=== PATIENT | male | born 1945 | race Caucasian/White ===

== ENCOUNTER 2016-08-31 18:22 | Inpatient (IN) | payer MEDICARE, MEDICAID ==
[~2016-08-31] VITALS: Ht 180.3 cm; Wt 82.2 kg
[~2016-08-31 18:22] MED LIST: Augmentin PO; HYDR1TAB PO
[2016-08-31 18:29] VITALS: BP 167/81; PULSE 66; RESP 18; O2SAT 97
[2016-08-31 18:38] VITALS: BP 206/102; PULSE 92; RESP 20; O2SAT 96
--- NOTE | 2016-08-31 18:49 | ED.REPORT ---
HPI-Chest Pain 40 and Over Date of Service Aug 31, 2016 ED Provider: Andrew Puga MD Pt is a 71 year old male with a hx of HTN presenting to the ED via EMS complaining of 6/10 left chest pain and pressure radiating to his left arm onset at 1700 today. Associated symptoms include diaphoresis. Denies nausea or vomiting. He states that the pain was onset while sitting down watching TV. Takes 1 baby aspirin per day. He states that his blood pressure is normally high. The pt was given nitro and baby aspirin by medics with no relief. Nursing Notes Stated Complaint: CHEST PAIN Chief Complaint: Chest Pain Nursing Notes Reviewed: Yes ([employer], meds not reconciled) Allergies: Uncoded Allergies: ALLUPURINOL (Adverse Reaction, Intermediate, nausea, 08/31/16) Scheduled ([Augmentin]) 1 TAB PO BID Hydrocod/APAP-Expunged, Do Not Renew! (VICODIN 5/500-Expunged Drug, Do Not Renew ) 1 Udtab Tablet 1-2 TAB PO Q6 General Time Seen by MD: 18:46 Chief Complaint Chest pain Hx Obtained From: Patient, EMS Arrived By: Ambulance Sudden in Onset?: Yes Onset Occurred: 1 - 4 hours ago Symptom Duration: Since onset Location: : Chest left Quality: Painful, Pressure Radiation: : Arm left Severity: Current: Pain level 4 out of 10 Severity: Maximum: Pain level 7 out of 10 Recent Healthcare: No recent doctor visit, No recent hospitalization Similar Sx Previous: No Risk Factors )( CAD Risk Stratification Hypertension Risk factors reviewed Past Medical History Past Medical History Admit for bowel obstruction and severe hyponatremia July 2010 Acute renal failure (Cr > 10) secondary to SBO Jul 2010 Septicemia complicating SBO Jul 2010 HTN Past Surgical History Lysis of adhesions 07/2010 Reports: Appendectomy Smoking History Heavy Tobacco Smoker Ambulatory Status Independent Review of Systems Cardiovascular: Reports: Chest pain GI: Denies: Nausea, Vomiting Skin: Reports Diaphoresis Complete sys rev & neg: except as marked. Physical Exam Initial Vital Signs Vital Signs (First) Date Time Temp Pulse Resp B/P Pulse Ox O2 Delivery O2 Flow Rate FiO2 08/31/16 18:38 36.6 92 20 206/102 96 Room Air Initial VS: Reviewed, Unavailable (none on chart, ordered) Head / Eyes: Atraumatic, Normocephalic, PERRL ENT: Mucous membranes moist, Conjunctiva normal, No scleral icterus Neck: Supple, Non-tender, Full range of motion Skin: Warm, Dry, No cyanosis Neurologic: Alert, Oriented, Nonfocal Psychiatric: Mood/affect normal, Behavior normal, Normal thought content General/Constitutional: Awake, Alert, No acute distress, Well appearing Respiratory / Chest: Breath sounds NL, Breath sounds = bilat, No respiratory distress, No rales, No rhonchi, No wheezing, No stridor Cardiovascular: Heart rate NL, Regular rhythm, Heart sounds NL, No murmurs Abdomen: Soft, Non-tender, BS normoactive, No distention Interpretation & Diagnostics Lab Results Interpretation Result Diagram: 08/31/16 1850 08/31/16 1850 Test 08/31/16 18:50 White Blood Count 8.7th/mm3 (3.8-10.1) Red Blood Count 4.89mil/mm3 (4.40-5.80) Hemoglobin 15.1g/dL (13.8-17.2) Hematocrit 44.8% (41.0-50.0) Mean Corpuscular Volume 91.6fL (81-100) Mean Corpuscular Hemoglobin 30.9pg (27.0-35.0) Mean Corpuscular Hemoglobin Concent 33.7% (32.0-37.0) Red Cell Distribution Width 14.3% (12.3-15.4) Platelet Count 210bil/L (150-400) Neutrophils (%) (Auto) 56.5% (40-74) Lymphocytes (%) (Auto) 31.1% (14-46) Monocytes (%) (Auto) 9.7% (4-12) Eosinophils (%) (Auto) 2.2% (0-5) Basophils (%) (Auto) 0.3% (0-3) Sodium Level 142mEq/L (134-144) Potassium Level 4.1mEq/L (3.5-5.2) Chloride Level 105mEq/L (97-108) Carbon Dioxide Level 21mmol/L (18-29) Blood Urea Nitrogen 22mg/dL (8-27) Creatinine 0.81mg/dL (0.76-1.27) Estimat Glomerular Filtration Rate 100mL/min (>59) Glucose Level 113mg/dL (60-99) Calcium Level 9.2mg/dL (8.5-10.1) Magnesium Level 2.0mg/dL (1.6-2.6) Total Bilirubin 0.4mg/dL (0.0-1.2) Aspartate Amino Transf (AST/SGOT) 24U/L (0-50) Alanine Aminotransferase (ALT/SGPT) 21U/L (0-44) Alkaline Phosphatase 87U/L (25-160) Troponin T < 0.010ug/L (0.0-0.011) Total Protein 7.5g/dL (6.4-8.4) Albumin 4.2g/dL (3.4-5.0) Lab Results Interpretation: CBC normal CMP normal troponin #1 negative ECG Interpretation ECG Interpretation: Rate 76. Time: 19:00 Interpreted by: ED physician Normal ECG Interpretation: Normal sinus rhythm ECG Interpretation: Rate 67. No acute ischemic changes. In both cases EKG is improved compared to prior in July 2010 when there were anterior T wave abnormalities that are no longer present. Time: 19:24 Interpreted by: ED physician Normal ECG Interpretation: Normal sinus rhythm X-Ray Chest Interpretation Chest Xray Interpretation: IMPRESSION: No acute cardiopulmonary disease. Dictated by: Brandon Roque M.D. on 08/31/2016 at 19:05 View: Portable, 1 view Interpretation / Wet Read by: Interpret - Radiologist Re-Eval/Medical Decision Med Decision/Clinical Course This is a 71-year-old male heavy smoker without known previous heart disease he does have untreated hypertension (he has been told he had severe high blood pressure, he is measured at high, before is been given a medicine but has not been taking it for the past year or 2) who presents complaining of acute onset of left-sided chest discomfort rating down the left arm with some fatigue, nausea, diaphoresis. The patient really got his attention and he knew he needed to come to the hospital. He received aspirin and nitroglycerin en route , it is improved but still having active discomfort at 410 on arrival. The patient severely hypertensive initially with a systolic greater than 200. History of EKG reveals no clear acute ischemic changes, to my eye there was a cholesterol borderline, nonspecific, non-definitive ST abnormality anteriorly. However, it was not definitive,. Additionally, invertned T wave abnormality seen on previous EKG anteriorly have now resolved. Negative and his presentation, a sequential EKG was obtained and appeared normal (nonspecific initial changes appeared completely normal on a subsequent EKG) Initial blood work was normal. Patient received some Dilaudid, nitroglycerin, metoprolol and his blood pressure symptoms improved. Presents with enough features to merit admission for serial enzymes and continued monitoring category syndrome/unstable angina remains in the differential. I am not finding clinical features to suggest pulmonary embolus. The case is discussed with the hospitalist who has see him in the department. Source of Hx: Old records Time of Eval: 19:02 Patient Status: Condition improved Re-Evaluation/Progress Note: Discussed supplemental history. Time of Eval: 20:11 Patient Status: Condition improved Re-Evaluation/Progress Note: Pt pain is improved but not resolved. Discussed plan for admission. Pt understands and agrees. Consultation : Referral / Consult Name: Julia Wilburn MD Consulted With: Hospitalist Call Returned at: 20:12 Egg Tester: Will see patient, Agrees with plan, Accepts admit Differential Diagnosis: Positive: Chest pain, acute, Negative: Dysrhythmia, Esophageal rupture, Gun shot wound chest, Pneumonia, Pneumothorax, Pulmonary edema, Pulmonary embolism, Rib fracture, Stab wound chest Counseled Regarding: Diagnosis, Lab results, Need for follow-up, When/why to return to ED Discharge & Departure Primary Impression: Chest pain Chest pain type: unspecified Qualified Code: R07.9 - Chest pain, unspecified Additional Impressions: Hypertension Hypertension type: unspecified secondary hypertension Hypertension goal: unspecified goal Qualified Code: I15.9 - Secondary hypertension, unspecified Tobacco abuse Disposition: ADMITTED TO HOSPITAL Discharge Condition All VS Reviewed: Yes Condition: Improved Referrals: Reginaldo Coyle MD (Family) Leviibemili Attestation Portions of this note were transcribed by Loli Nolasco. I, Dr. Puga personally performed the history, physical exam and medical decision-making; I reviewed and confirmed the accuracy of the information in the transcribed note. Signed by: Purnima Aguilera, 08/31/2016 at 2054. copies to: Reginaldo Coyle MD, Matthew F MD Aug 31, 2016 18:49 LOLI NOLASCO Aug 31, 2016 18:57
[2016-08-31] MEDS ORDERED: MeTOProlol 1 mg/mL 5 mL Inj IVPUSH ONE ×2 (18:55→20:35)
[2016-08-31] MEDS ORDERED: HYDROmorphone 0.5 mg/0.5 mL iSecure Syringe IVPUSH PRN (18:55)
[2016-08-31] MEDS ORDERED: Nitroglycerin 2% 1 Gm Ointment TOPICAL SCH (18:55)
[2016-08-31 19:01] LABS: BASOPHILS % (AUTO) 0.3 % (0-3); EOSINOPHILS % (AUTO) 2.2 % (0-5); MONOCYTES % (AUTO) 9.7 % (4-12); Mean Corpuscular Hemoglobin 30.9 pg (27.0-35.0); Mean Corpuscular Volume 91.6 fL (81-100); NEUTROPHILS % (AUTO) 56.5 % (40-74); Platelet Count 210 bil/L (150-400)
--- NOTE | 2016-08-31 19:07 | DRSVH ---
PROCEDURE: X-RAY CHEST ONE VIEW, PORTABLE ([id number]) INDICATIONS: 71 year-old male with chest pain. TECHNIQUE: One view of the chest was acquired. COMPARISON: [facility], [place], CHEST 2VW, 07/27/2010, 11:56. [facility], CR, C HEST 1VW (PORTABLE), 07/19/2010, 15:06. FINDINGS: Surgical changes and devices: None. Lungs and pleura: No pleural effusions or pneumothorax. Lungs are clear, except for lateral lingula r scarring as before. Mediastinum: Mediastinal contours appear normal. Heart size is normal. Bones and chest wall: No suspicious bony lesions. Overlying soft tissues appear unremarkable. IMPRESSION: No acute cardiopulmonary disease. Dictated by: Brandon Roque M.D. on 08/31/2016 at 19:05 Approved by: Brandon Roque M.D. on 08/31/2016 at 19:05
[2016-08-31 19:41] LABS: TROPONIN T < 0.010 ug/L (0.0-0.011)
[2016-08-31] MEDS ORDERED: HYDROmorphone 0.5 mg/0.5 mL iSecure Syringe IVPUSH ONE ×2 (19:45→20:35)
[2016-08-31 20:05] VITALS: BP 187/86; PULSE 78; RESP 20; O2SAT 96
[2016-08-31] MEDS: Nitroglycerin 2% 1 Gm Ointment TOPICAL SCH ×2 (20:42→20:50)
[2016-08-31 21:10] VITALS: BP 205/102; PULSE 68; RESP 19; O2SAT 98
[2016-08-31] MEDS ORDERED: Alum-Mag Hydrox-Simeth 30 mL Suspension PO PRN (21:35)
[2016-08-31] MEDS ORDERED: Nitroglycerin 50 mg/250 mL D5W 50,000 MCG in IV Premix 1 EACH IV SCH (21:35)
[2016-08-31] MEDS ORDERED: Ondansetron 2 mg/mL 2 mL Inj IVPUSH PRN (21:35)
[2016-08-31] MEDS ORDERED: Polyethylene Glycol (PEG) 17 Gm Powder PO PRN (21:35)
[2016-08-31] MEDS ORDERED: Senna-Docusate 8.6-50 mg Tablet PO PRN (21:35)
[2016-08-31 22:11] VITALS: BP 210/122; PULSE 69; RESP 13; O2SAT 98
--- NOTE | 2016-08-31 23:18 | PCM.HPMED ---
Subjective Date of Service Aug 31, 2016 Primary Provider: Admitting Physician: Julia Wilburn MD Primary Care Physician: Nopshawn Attending Physician: Julia Wilburn MD Admit Status: From the Emergency Department, Full Admit, Critical Care Chief Complaint: Left-sided chest pain with significantly elevated blood pressure History of Present Illness: This is a 71-year-old male with a history of hypertension who does not follow up with medical care who presents with left-sided chest pain radiation to his left arm started about 5 PM the day of admission. He denied a nausea vomiting denied any shortness of breath but did admit to having diaphoresis with it. He was given nitroglycerin here with some improvement in his symptoms. He notes that went from about a 6 out of 10 to about a 2 out of 10. He was given aspirin via paramedics. Patient has no history of coronary artery disease. He periodically will check his blood pressure at home and notes that it runs anywhere from 150-200/90 200s typically. Again he has not seen medical provider times several years. His evaluation here in the emergency room includes a 12-lead EKG which does not reveal any acute abnormalities. He was given sublingual nitroglycerin along with Nitropaste which did help in the amount of discomfort he had. He was also given IV Dilaudid which improved his discomfort even more. However with those interventions he was continuing to have blood pressures over 200 and diastolic blood pressure about 110. First troponin is less than 0.01. He notes no prior history of similar. He notes pain does not change with movement or inspiration. There is no tenderness to palpation. He denies any GI symptoms. He denies cough fevers or chills. Review of Systems: All other review of systems are reviewed and are negative except for as in history of present illness. Allergies Uncoded Allergies: ALLUPURINOL (Adverse Reaction, Intermediate, nausea, 08/31/16) Home Medications None PMH Past Medical History Admit for bowel obstruction and severe hyponatremia July 2010 Acute renal failure (Cr > 10) secondary to SBO Jul 2010 Septicemia complicating SBO Jul 2010 HTN Past Surgical History Lysis of adhesions 07/2010 Reports: Appendectomy Family History Mother and father with a history of type II diabetes Social History Hx Alcohol Use: No Hx Substance Use: No Hx Tobacco Use: Yes (chewing "tabacky" and 2 ppd) Smoking Status: Heavy Tobacco Smoker Living Arrangement: Alone Exam Vital Signs Vital Sign - Last Date Time Temp Pulse Resp B/P Pulse Ox O2 Delivery O2 Flow Rate FiO2 08/31/16 22:11 36.7 69 13 210/122 98 Room Air Exam Constitutional: Elderly man in no acute distress Head: Normocephalic atraumatic Eyes: PERRLA DC EOMI Mouth: No lesions Neck: Carotids 2+ over 4 without bruits Chest: Clear to auscultation Cor: Regular rate and rhythm S1-S2 without murmur Abdomen: Soft nontender bowel sounds present Extremity: No pedal edema noted Skin: No rashes Psych: Mood and affect appropriate Neuro: Alert and oriented 3, motor strength is intact bilaterally Lab and Diagnostics Labs Laboratory Tests 72 Hours Test 08/31/16 18:50 White Blood Count 8.7th/mm3 (3.8-10.1) Red Blood Count 4.89mil/mm3 (4.40-5.80) Hemoglobin 15.1g/dL (13.8-17.2) Hematocrit 44.8% (41.0-50.0) Mean Corpuscular Volume 91.6fL (81-100) Mean Corpuscular Hemoglobin 30.9pg (27.0-35.0) Mean Corpuscular Hemoglobin Concent 33.7% (32.0-37.0) Red Cell Distribution Width 14.3% (12.3-15.4) Platelet Count 210bil/L (150-400) Neutrophils (%) (Auto) 56.5% (40-74) Lymphocytes (%) (Auto) 31.1% (14-46) Monocytes (%) (Auto) 9.7% (4-12) Eosinophils (%) (Auto) 2.2% (0-5) Basophils (%) (Auto) 0.3% (0-3) Sodium Level 142mEq/L (134-144) Potassium Level 4.1mEq/L (3.5-5.2) Chloride Level 105mEq/L (97-108) Carbon Dioxide Level 21mmol/L (18-29) Blood Urea Nitrogen 22mg/dL (8-27) Creatinine 0.81mg/dL (0.76-1.27) Estimat Glomerular Filtration Rate 100mL/min (>59) Glucose Level 113mg/dL (60-99) Calcium Level 9.2mg/dL (8.5-10.1) Magnesium Level 2.0mg/dL (1.6-2.6) Total Bilirubin 0.4mg/dL (0.0-1.2) Aspartate Amino Transf (AST/SGOT) 24U/L (0-50) Alanine Aminotransferase (ALT/SGPT) 21U/L (0-44) Alkaline Phosphatase 87U/L (25-160) Troponin T < 0.010ug/L (0.0-0.011) Total Protein 7.5g/dL (6.4-8.4) Albumin 4.2g/dL (3.4-5.0) Result Diagram: 08/31/16184908/31/161849 X-Rays, CTs and MRIs Patient Name: BRAD ARMSTRONG MR#: [id number] Location: [facility] Ordering Phys: Andrew Puga MD Date of Service: 08/31/161847 PROCEDURE: X-RAY CHEST ONE VIEW, PORTABLE ([id number]) INDICATIONS: 71 year-old male with chest pain. TECHNIQUE: One view of the chest was acquired. COMPARISON: [facility], , CHEST 2VW, 07/27/2010, 11:56. [facility], CHEST 1VW (PORTABLE), 07/19/2010, 15:06. FINDINGS: Surgical changes and devices: None. Lungs and pleura: No pleural effusions or pneumothorax. Lungs are clear, except for lateral lingular scarring as before. Mediastinum: Mediastinal contours appear normal. Heart size is normal. Bones and chest wall: No suspicious bony lesions. Overlying soft tissues appear unremarkable. IMPRESSION: No acute cardiopulmonary disease. Dictated by: Brandon Roque M.D. on 08/31/2016 at 19:05 Approved by: Brandon Roque M.D. on 08/31/2016 at 19:05 12-lead ECG Sinus at 67 with no acute abnormalities Assessment & Plan # Chest pain, acute, present on admission Check serial cardiac enzymes. Check echocardiogram Check nuclear pharmacological stress test May be related to malignant hypertension Repeat EKG in a.m. Place on ASA 81 mg by mouth daily # Hypertensive emergency with chest pain, acute, present on admission We will start IV nitroglycerin glycerin drip try to control blood pressure with goal of reduction to 10-20 per cent in 1st hour and the further 5-15 percent over the next 23 hours.. # DVT prophylaxis Placed on subcutaneous heparin # CODE STATUS Full code Pain Evaluation: Adequate Pain Control GI Prophylaxis: H2 kathy VTE Prophylaxis: Sub-Q Heparin (Unfractionated) VTE Mechanical Devices: Intermittant Pneumatic CD Resuscitation Status: CPR: Attempt Resuscitation Time spent 60 minutes Julia Wilburn MD Aug 31, 2016 23:18
[2016-08-31 23:34] LABS: BASOPHILS % (AUTO) 0.4 % (0-3); MONOCYTES % (AUTO) 6.6 % (4-12); Mean Corpuscular Hemoglobin 30.7 pg (27.0-35.0); Mean Corpuscular Volume 91.6 fL (81-100); NEUTROPHILS % (AUTO) 71.5 % (40-74); Platelet Count 209 bil/L (150-400)
[2016-08-31 23:51] LABS: TROPONIN T 0.01 ug/L (0.0-0.011)
[2016-09-01] VITALS (11 sets, daily range): BP systolic 173–199; BP diastolic 91–120; PULSE 64–91; RESP 15–20; O2SAT 96–97
[2016-09-01 00:15] LABS: APPEARANCE,URINE CLEAR (CLEAR,HAZY); COLOR,URINE YELLOW (YELLOW); OCCULT BLOOD,URINE NEGATIVE (NEGATIVE); UROBILINOGEN,URINE NORMAL (NORMAL)
[2016-09-01] MEDS: Heparin 5,000 Unit/mL Inj SUBQ SCH ×2 (01:27→09:26)
--- NOTE | 2016-09-01 02:06 | NUR ---
Transfer Pt transferred from ED at 2200 report taken from YO MILLER. Pt placed on telemetry and at a sinus rhythm in the 60-70 range. Pt complaining of 2/10 chest pain that effects his right arm. Pt alert and oriented x3. Denies SOB or any other discomfort. Nitro drip started as per orders at 5mcg/min BP at 201/101.
[2016-09-01] MEDS ORDERED: MeTOProlol 1 mg/mL 5 mL Inj IV ONE (02:30)
[2016-09-01] MEDS ORDERED: Potassium Chloride 20 mEq SR Tablet PO ONE (02:30)
[2016-09-01] MEDS ORDERED: Furosemide 10 mg/mL 4 mL Inj IVPUSH ONE (02:30)
[2016-09-01] MEDS ORDERED: hydrALAZINE 20 mg/mL Inj IV PRN (06:40)
[2016-09-01] MEDS ORDERED: Famotidine Inj 50 ML IV SCH (08:30)
--- NOTE | 2016-09-01 10:34 | NUR ---
Social Work: Initial Assessment D: Per EMR review, pt is a 71 year old male admitted for chest pain. Pt is Medicare with [facility] supplement; pt has no LTC insurance or VA benefits. Pt does not have a PCP, pt declined appt at [facility]. NOK is Juma Cook, Friend, . Pt states he has completed his advanced directives and will provide a copy to [facility] once he discharges home. Readmit score not entered at this time. DOCTOR NATUROPATHIC met with pt at bedside. Sw role explained. See initial assessment. [place], alone. Pt states he does not have power (by choice) on his property, and only drives into [facility] for groceries and small errands. Pt states that he is interested in finding a PCP located in [place] but does not know who accepts Medicare. DOCTOR NATUROPATHIC printed list of providers located in [place] from the Medicare.gov website and provided to pt. Pt states he will call to inquire about new patient appointments. Pt states that he is I and uses no DME. He has never had HH or been to skilled rehab. Pt has been I during admission and is eager to get home. Pt states his friend, Juma, will provide transportation. A: Pt who is I at baseline. P: Anticipate pt to discharge home via POV and no SW needs; pt has copy of local PCP's accepting Medicare. DOCTOR NATUROPATHIC to continue to follow and assist if needs arise. MARY BETH Ochoa Addendum: 09/01/16 at 1046 by SUSAN CHAPMAN Amended: Links added.
--- NOTE | 2016-09-01 13:21 | DRSVH ---
[facility] [address] [place] [address] Echocardiogram Report Name: BRAD ARMSTRONG Mau e: 09/01/2016 Height: 71 in Hospital Exam Location: [facility] Weight: 181 lb Gender: Male BSA: 2.0 m2 : 1945 Age: 71 yrs BP: 173/91 mmHg Reason For Study: CHEST PAIN Ordering Physician: Performed By: Jovita Montague Interpretation Summary 1) Normal left ventricular thickness, size, wall motion, and systolic function (EF 60-65%). 2) Normal right ventricular size and function. 3) No significant valvular abnormalities. 4) Hypertension present during the study (BP 173/91). 5) No prior Echo available for comparison. Procedure: A two-dimensional transthoracic echocardiogram with color flow and Doppler was performed. The study quality was technically adequate. There is no prior echocardiogram noted for this patient. The patient was in normal sinus rhythm during the exam. Left Ventricle: The left ventricle is normal in size, wall thickness, and systolic function without any focal wall motion abnormalities. The ejection fraction is estimated to be 60-65%. Spectral Doppler of the mitral valve is reversed, with an E/A wave ratio < 1.0. Assessment of diastolic parameters indicates a relaxation abnormality of the left ventricle, consistent with normal filling pressures. Right Ventricle: The right ventricle is normal in size and function. Atria: The left atrium is mildly dilated. Right atrial size is normal. There is no Doppler evidence for an atrial septal defect. Mitral Valve: The mitral valve leaflets appear normal. There is no evidence of stenosis, fluttering, or prolapse. There is trace mitral regurgitation. Aortic Valve: The aortic valve is trileaflet. The aortic valve opens well. There is no aortic valve stenosis. No aortic regurgitation is present. Tricuspid Valve: The tricuspid valve leaflets are thin and pliable. No tricuspid regurgitation. Pulmonic Valve: The pulmonic valve is not well seen, but is grossly normal. There is no pulmonic valvular regurgitation. Great Vessels: The aortic root is normal size. The pulmonary artery is normal size. The IVC is of normal diameter and collapses greater than 50% with a sniff. This suggests a low right atrial pressure of 3 mm Hg. Pericardium/ Pleura There is no pericardial effusion. There is no pleural effusion. MMode/2D Measurements & Calculations LVIDd: 5.1 cm LA dimension: 4.0 cm RA long axis LVOT diam: 2.1 cm LVIDs: 3.0 cm AoV Openin.9 cm FS: 40.2 % LA A2 area: 23.1 cm RA area Ao root diam: 3.6 cm EPSS: 0.75 cm LA A4 area: 20.2 cm Ao Arch Diam IVSd: 1.0 cm LA length (vol) : 15.5 cm (Proximal trans.) LVPWd: 1.0 cm RA vol LA vol: 74.9 ml : 37.3 ml LA vol index RA : 18.5 mm/ RVDd major IVC diam: 1.9 cm RVDd minor : 3.3 cm LV matamoros. diameter/BSALV sys. diameter/BSA (cm/m^2): 2.5 (cm/m^2): 1.5 Doppler Measurements & Calculations Ao V2 max MV E max max MV E/A: 0.64 PA V2 max : 146.9 cm/sec : 47.7 cm/sec Med Peak E' Max : 111.1 cm/sec Ao max PG MV A max max PA mean PG : 8.6 mmHg : 74.1 cm/sec E/E' med: 9.4 Ao mean PG MV P1/2t: 79.5 msec Lat Peak E' Max PA Accel Time : 0.09 sec LVOT Max Max E/E' lat: 6.2 : 111.7 cm/sec Pulm A Revs Dur EMERSON(I,D): 2.3 cm sev ratio MV A dur: 0.13 sec MV dec time MV P1/2t max max Ao V2 mean LV V1 max PG : 0.25 sec : 110.0 cm/sec Ao V2 VTI: 29.3 cm LV V1 VTI MVA(P1/2t): 2.8 cm2 : 19.7 cm EMERSON(V,D): 2.6 cm2 PA V2 mean EMERSON indexed to BSA Pulm A Revs Dur - MV A : 77.3 cm/sec (cm^2/m^2): 1.1 Dur: -0.00 msec Reading Physician:01:20 PM
--- NOTE | 2016-09-01 14:29 | PCM.DIMED ---
Discharge Instructions Date of Service Sep 01, 2016 Dates of Hospitalization Aug 31, 2016 at 20:36 Discharge Diagnosis Discharge Diagnosis 1. Chest pain , unclear cause. 2. Untreated hypertension 3. Tobacco dependence Diet Heart Healthy Activity Limited until seen by PCP Patient Instructions See your PCP in 7-14 days. Follow-up Provider: Addi Alfaro MD Follow-up with PCP in: 2 weeks Addi Alfaro MD Sep 01, 2016 14:29
[2016-09-01] MEDS ORDERED: LISI30TA5 PO (14:30)
--- NOTE | 2016-09-01 14:41 | PCM.DC.MED ---
Discharge Summary Date of Service Sep 01, 2016 Dates of Hospitalization Date of Hospital Admission Aug 31, 2016 at 20:36 Date of Discharge: Sep 01, 2016 Providers: Admitting Physician: Julia Wilburn MD Primary Care Physician: Nopshawn Attending Physician: Julia Wilburn MD Diagnosis at Time of Discharge Diagnosis at Time of Discharge 1. Chest pain , unclear cause. 2. Untreated hypertension 3. Tobacco dependence Consultations 9 Procedures XRay, CTs & MRIs Patient Name: BRAD ARMSTRONG MR#: [id number] [place] [facility] [place] Phys: Andrew Puga MD Date of Service: 08/31/16 1848 PROCEDURE: X-RAY CHEST ONE VIEW, PORTABLE ([id number]) INDICATIONS: 71 year-old male with chest pain. TECHNIQUE: One view of the chest was acquired. COMPARISON: [facility], , CHEST 2VW, 07/27/2010, 11:56. [facility], , CHEST 1VW (PORTABLE), 07/19/2010, 15:06. FINDINGS: Surgical changes and devices: None. Lungs and pleura: No pleural effusions or pneumothorax. Lungs are clear, except for lateral lingular scarring as before. Mediastinum: Mediastinal contours appear normal. Heart size is normal. Bones and chest wall: No suspicious bony lesions. Overlying soft tissues appear unremarkable. IMPRESSION: No acute cardiopulmonary disease. Dictated by: Brandon Roque M.D. on 08/31/2016 at 19:05 Approved by: Brandon Roque M.D. on 08/31/2016 at 19:05 ECG 12 Lead Sinus at 67 with no acute abnormalities Brief History This is a 71-year-old male with a history of hypertension who does not follow up with medical care who presents with left-sided chest pain radiation to his left arm started about 5 PM the day of admission. He denied a nausea vomiting denied any shortness of breath but did admit to having diaphoresis with it. He was given nitroglycerin here with some improvement in his symptoms. He notes that went from about a 6 out of 10 to about a 2 out of 10. He was given aspirin via paramedics. Patient has no history of coronary artery disease. He periodically will check his blood pressure at home and notes that it runs anywhere from 150-200/90 200s typically. Again he has not seen medical provider times several years. His evaluation here in the emergency room includes a 12-lead EKG which does not reveal any acute abnormalities. He was given sublingual nitroglycerin along with Nitropaste which did help in the amount of discomfort he had. He was also given IV Dilaudid which improved his discomfort even more. However with those interventions he was continuing to have blood pressures over 200 and diastolic blood pressure about 110. First troponin is less than 0.01. He notes no prior history of similar. He notes pain does not change with movement or inspiration. There is no tenderness to palpation. He denies any GI symptoms. He denies cough fevers or chills. Hospital Course This patient was admitted for atypical chest pain. His long history of tobacco dependence and untreated hypertension. His initial ECG and troponins were all unremarkable. He was noted to be in hypertensive urgency and was treated with a nitro drip which related to affect any change. In talking with him he likely had systolic blood pressures in the 180s to 200s for several years which had been untreated. This is asymptomatic he denied headache. He had been scheduled for a stress test but the [facility] lab felt that would not be doable until his blood pressure is under better control. He was started on lisinopril with minimal improvement and elected to go home without the stress test. We will make arrangements for outpatient follow-up and ongoing management of his blood pressure with an initiation of lisinopril at 30 mg a day. Exam Vital Signs (Last) Date Time Temp Pulse Resp B/P Pulse Ox O2 Delivery O2 Flow Rate FiO2 09/01/16 13:08 78 174/103 09/01/16 09:17 36.8 15 96 Room Air Exam Alert oriented no acute distress. Pupils symmetric, anicteric sclerae Neck supple. Lungs are clear, no murmur is noted with a heart which is regular. Abdomen is soft nondistended Extremities are free of edema. Good pedal and radial pulses Test 08/31/16 22:44 08/31/16 23:26 09/01/16 04:45 White Blood Count 10.2th/mm3 (3.8-10.1) Red Blood Count 4.62mil/mm3 (4.40-5.80) Hemoglobin 14.2g/dL (13.8-17.2) Hematocrit 42.3% (41.0-50.0) Mean Corpuscular Volume 91.6fL (81-100) Mean Corpuscular Hemoglobin 30.7pg (27.0-35.0) Mean Corpuscular Hemoglobin Concent 33.6% (32.0-37.0) Red Cell Distribution Width 14.3% (12.3-15.4) Platelet Count 209bil/L (150-400) Neutrophils (%) (Auto) 71.5% (40-74) Lymphocytes (%) (Auto) 20.3% (14-46) Monocytes (%) (Auto) 6.6% (4-12) Eosinophils (%) (Auto) 1.0% (0-5) Basophils (%) (Auto) 0.4% (0-3) Sodium Level 141mEq/L (134-144) Potassium Level 3.9mEq/L (3.5-5.2) Chloride Level 106mEq/L (97-108) Carbon Dioxide Level 21mmol/L (18-29) Blood Urea Nitrogen 23mg/dL (8-27) Creatinine 0.75mg/dL (0.76-1.27) Estimat Glomerular Filtration Rate 110mL/min (>59) Glucose Level 116mg/dL (60-99) Calcium Level 8.7mg/dL (8.5-10.1) Magnesium Level 2.0mg/dL (1.6-2.6) Total Bilirubin 0.3mg/dL (0.0-1.2) Aspartate Amino Transf (AST/SGOT) 17U/L (0-50) Alanine Aminotransferase (ALT/SGPT) 18U/L (0-44) Alkaline Phosphatase 83U/L (25-160) Total Protein 6.8g/dL (6.4-8.4) Albumin 3.9g/dL (3.4-5.0) Urine Color Yellow (YELLOW) Urine Appearance Clear (CLEAR,HAZY) Urine pH 7.0 (5.0-8.0) Urine Specific [place] 1.015 (1.003-1.035) Urine Protein Negativemg/dL (NEG,TRACE) Urine Glucose (UA) Negativemg/dL (NEGATIVE) Urine Ketones Negativemg/dL (NEGATIVE) Urine Occult Blood Negative (NEGATIVE) Urine Nitrite Negative (NEGATIVE) Urine Bilirubin Negative (NEGATIVE) Urine Urobilinogen Normalmg/dL (NORMAL) Urine Leukocyte Esterase Negative (NEGATIVE) Urine RBC 0-2/hpf (0-2) Urine WBC 6-10/hpf (0-5) Urine Epithelial Cells Occasional/hpf (NONE-MOD) Urine Crystals None seen (NONE SEEN) Urine Bacteria Many/hpf (NONE-FEW) Urine Hyaline Casts None/lpf (NONE) Urine Granular Casts None seen (NONE SEEN) Urine Waxy Casts None seen (NONE SEEN) Urine Red Blood Cell Casts None seen (NONE SEEN) Urine White Blood Cell Casts None seen (NONE SEEN) Urine Mucus Present (None Seen) Urine Trichomonas None seen (NONE SEEN) Urine Yeast None (NONE SEEN) Urine Culture Reflexed Indicated Troponin T 0.010ug/L (0.0-0.011) Discharge Medications Discharge Medications ([Augmentin]) 1 TAB PO BID (Reported) Hydrocod/APAP-Expunged, Do Not Renew! (VICODIN 5/500-Expunged Drug, Do Not Renew ) 1 Udtab Tablet 1-2 TAB PO Q6 (Reported) Lisinopril (Lisinopril) 30 Mg Tablet 30 MG PO DAILY Prescribed by: ADDI CORTEZ MD Followup Plan Discharge Diet: Heart Healthy Discharge Activity: Limited until seen by PCP Patient Instructions See your PCP in 7-14 days. Follow-up Provider: Addi Cortez MD Follow-up with PCP in: 2 weeks Time spent 30 minutes Addi Cortez MD Sep 01, 2016 14:41
--- NOTE | 2016-09-01 15:20 | NUR ---
Discharge He discharged at 1515 via wheelchair with a friend to pick him up. His IV was discontinued intact. Blood pressures at the time of discharge were about 160-170/90s. He denied chest pain. Given discharge paperwork (MD/nurse instructions, hard copy prescriptions, care notes). His questions and concerns were addressed. To have follow-up appointment with Dr. Addi Alfaro in 2 weeks. Gave him the phone number.
== END 2016-09-01 15:20 | disposition home or self-care (01) | DRG 313 ==
LOC: SED 18:22 → EDBD 18:22 → MPC 20:36 → OBSVTOIN 20:36 → PCC 21:27
PROVIDERS: ADMIT Specialist; ATTEND Specialist
DX: R07.9 Chest pain, unspecified (principal); I16.1 Hypertensive emergency; I10 Essential (primary) hypertension; F17.200 Nicotine dependence, unspecified, uncomplicated; Z91.19 Patient's noncompliance with other medical treatment and regimen